=== PATIENT | male | born 1970 | race Caucasian/White ===

== ENCOUNTER 2019-07-18 08:21 | Day surgery (SDC) | payer BC ==
[2019-07-18 09:28] VITALS: BMI 30.5
[2019-07-18 10:34] VITALS: TEMP 97.5
[2019-07-18 11:44] VITALS: BP 121/67; PULSE 62
[2019-07-18 11:46] LABS: BASO % 0.7 % (0-2.0); EOS % 1.7 % (0-4.5); HEMOGLOBIN 13.5 GM/dL (11.7-16.9); LYMPH % 33.8 % (8-40); MCH 27.4 pg (25.7-33.7); MCHC 32.9 g/dl (32.0-35.9); MEAN CELL VOLUME 83.3 fl (80-96); MEAN PLT VOLUME 7.5 fl (7.5-11.1); MONO % 4.9 % (3.8-10.2); NEUT % 58.9 % (42.8-82.8); PLATELET COUNT 210 K/MM3 (134-434); RBC 4.92 M/mm3 (4.00-5.60); WHITE BLOOD COUNT 4.8 K/mm3 (4.0-10.0)
[2019-07-18 12:14] LABS: IRON SERUM 136 ug/dL (50-175); TOTAL IRON BINDING CAPACITY 295 ug/dL (250-450)
[2019-07-18 12:17] LABS: BLOOD UREA NITROGEN 13.5 mg/dL (7-18); CALCIUM 8.9 mg/dL (8.5-10.1); CREATININE 1.1 mg/dL (0.55-1.3); POTASSIUM 4.1 mmol/L (3.5-5.1); TOT PROT 7.2 g/dl (6.4-8.2)
[2019-07-19 17:07] LABS: GLIADIN ANTIBODY IGA 4 units (0-19); GLIADIN ANTIBODY IGG 4 units (0-19); TRANSGLUTAMINASE IGG < 2 U/mL (0-5)
--- NOTE | 2019-07-19 17:33 | PATH ---
Surgical Pathology Report Patient Name: YOVANNY CARD [facility]. Rec. #: [id number] /Age/Gender: 1970 (Age: 48) / M Account: [id number] Location: U-ENDOSCOPY Taken: 07/18/2019 Received: 07/18/2019 Reported: 07/19/2019 Physicians: Musa Dawn M.D. Specimen(s) Received A: ILEUM B: CECUM C: RIGHT COLON D: MID TRANSVERS COLON POLY E: DISTAL TRANSVERSE COLON F: SIGMOID G: RECTUM Clinical History Ulcerative colitis Postoperative diagnosis: Quiescent ulcerative colitis/proctitis, colon polyp Final Diagnosis A. ILEUM, BIOPSY: ILEAL MUCOSA WITH PROMINENT LYMPHOID AGGREGATE. NO SIGNIFICANT ARCHITECTURAL DISTORTION OR ACUTE INFLAMMATION IDENTIFIED. NO GRANULOMA OR DYSPLASIA IDENTIFIED. B. CECUM, BIOPSY: COLONIC MUCOSA WITH MILD CHRONIC ACTIVE COLITIS, INCLUDING MILD ARCHITECTURAL DISTORTION, MILD INCREASE IN ACUTE AND CHRONIC INFLAMMATORY INFILTRATE, AND PROMINENT LYMPHOID AGGREGATE WITHIN LAMINA PROPRIA. NO GRANULOMA OR DYSPLASIA IDENTIFIED. C. COLON, RIGHT, BIOPSY: COLONIC MUCOSA WITH MODERATE ARCHITECTURAL DISTORTION, INCREASED CHRONIC INFLAMMATORY INFILTRATE AND PROMINENT LYMPHOID AGGREGATES WITHIN LAMINA PROPRIA. NO GRANULOMA OR DYSPLASIA IDENTIFIED. D. MID TRANSVERSE COLON, POLYP, BIOPSY: TUBULAR ADENOMA. E. DISTAL TRANSVERSE COLON, BIOPSY: COLONIC MUCOSA WITH MILD ARCHITECTURAL DISTORTION, INCREASED CHRONIC INFLAMMATORY INFILTRATE AND PROMINENT LYMPHOID AGGREGATES WITHIN LAMINA PROPRIA. NO GRANULOMA OR DYSPLASIA IDENTIFIED. F. SIGMOID COLON, BIOPSY: COLONIC MUCOSA WITH MILD ARCHITECTURAL DISTORTION, MILD INCREASE IN CHRONIC INFLAMMATORY INFILTRATE WITHIN LAMINA PROPRIA, SMALL LYMPHOID AGGREGATES, AND SUPERFICIAL HYPERPLASTIC FEATURES. NO GRANULOMA OR DYSPLASIA IDENTIFIED. G. RECTUM, BIOPSY: COLONIC MUCOSA WITH MILD INCREASE IN CHRONIC INFLAMMATORY INFILTRATE, SMALL LYMPHOID AGGREGATE, AND HEMORRHAGE WITHIN LAMINA PROPRIA. NO GRANULOMA OR DYSPLASIA IDENTIFIED. Comment: Overall findings are consistent with history of ulcerative colitis with focal activity. Suggest clinical and endoscopic correlation. Electronically Signed Nancy Thomas M.D. Gross Description A. Received in formalin, labeled "ileum" are 2 colby, irregular portions of soft tissue measuring 0.3 cm. in greatest dimension. The specimens are submitted in toto in one cassette. B. Received in formalin, labeled "cecum" are 3 colby, irregular portions of soft tissue measuring 0.1 and 0.4 cm. in greatest dimension. The specimens are submitted in toto in one cassette. C. Received in formalin, labeled "right colon" are 3 colby, irregular portions of soft tissue measuring 0.3 and 0.4 cm. in greatest dimension. The specimens are submitted in toto in one cassette. D. Received in formalin, labeled "mid transverse colon polyp" are 2 colby, irregular portions of soft tissue measuring 0.2 and 0.6 cm. in greatest dimension. The specimens are submitted in toto in one cassette. E. Received in formalin, labeled "distal transverse" is a colby, irregular portion of soft tissue measuring 0.3 cm. in greatest dimension. The specimen is submitted in toto in one cassette. F. Received in formalin, labeled "sigmoid" are 3 colby, irregular portions of soft tissue measuring 0.1 and 0.3 cm. in greatest dimension. The specimens are submitted in toto in one cassette. G. Received in formalin, labeled "rectum" are 4 colby, irregular portions of soft tissue measuring 0.1 and 0.2 cm. in greatest dimension. The specimens are submitted in toto in one cassette. MLSZ/07/18/2019 sanml07/18/2019
[2019-07-20 06:36] LABS: CHOLESTEROL 184 mg/dL (50-200); HDL CHOLESTEROL 39 mg/dL (40-60); LDL CHOLESTEROL (ONLY SJRH) 110 mg/dL (5-100); TRIGLYCERIDES 169 mg/dL (0-150)
[2019-07-20 16:07] LABS: ATYPICAL pANCA <1:20 titer (Neg:<1:20); C-ANCA <1:20 titer (Neg:<1:20)
== END 2019-07-18 11:44 | disposition home or self-care (01) ==
LOC: JASU-ENDO 08:21
PROVIDERS: ATTEND Internal Medicine Gastroenterology
PROC: 0DBE8ZX Excision of Large Intestine, Via Natural or Artificial Opening Endoscopic, Diagnostic (ICD-10-PCS; 2019-07-18)
PROC: 0DBL8ZX Excision of Transverse Colon, Via Natural or Artificial Opening Endoscopic, Diagnostic (ICD-10-PCS; 2019-07-18)
PROC: 0DBP8ZX Excision of Rectum, Via Natural or Artificial Opening Endoscopic, Diagnostic (ICD-10-PCS; principal; 2019-07-18 08:45)
DX: Z12.11 Encounter for screening for malignant neoplasm of colon (principal); K51.90 Ulcerative colitis, unspecified, without complications; D12.3 Benign neoplasm of transverse colon
CPT/HCPCS: 36415; 80053; 80061; 82306; 82728; 82784; 83516; 83520; 83540; 83550; 83721; 85025; 86140; 86256; 86671; 88305-TC

== ENCOUNTER 2021-06-19 04:42 | Day surgery (SDC) | payer BC ==
[2021-06-19 09:00] VITALS: TEMP 97.8; BMI 29.9
[2021-06-19 12:19] VITALS: BP 116/77; PULSE 73
== END 2021-06-19 11:30 | disposition home or self-care (01) ==
LOC: JASU-ENDO 04:42
PROVIDERS: ATTEND Internal Medicine Gastroenterology
PROC: 0DBL8ZX Excision of Transverse Colon, Via Natural or Artificial Opening Endoscopic, Diagnostic (ICD-10-PCS; 2021-06-19)
PROC: 0DBN8ZX Excision of Sigmoid Colon, Via Natural or Artificial Opening Endoscopic, Diagnostic (ICD-10-PCS; 2021-06-19)
PROC: 0DBP8ZX Excision of Rectum, Via Natural or Artificial Opening Endoscopic, Diagnostic (ICD-10-PCS; 2021-06-19)
PROC: 0DBB8ZX Excision of Ileum, Via Natural or Artificial Opening Endoscopic, Diagnostic (ICD-10-PCS; 2021-06-19)
PROC: 0DBH8ZX Excision of Cecum, Via Natural or Artificial Opening Endoscopic, Diagnostic (ICD-10-PCS; 2021-06-19)
PROC: 0DBK8ZX Excision of Ascending Colon, Via Natural or Artificial Opening Endoscopic, Diagnostic (ICD-10-PCS; principal; 2021-06-19 09:45)
DX: Z12.11 Encounter for screening for malignant neoplasm of colon (principal); K51.80 Other ulcerative colitis without complications; K57.30 Diverticulosis of large intestine without perforation or abscess without bleeding; K64.0 First degree hemorrhoids; K62.89 Other specified diseases of anus and rectum; R19.4 Change in bowel habit; R10.84 Generalized abdominal pain

== ENCOUNTER 2024-07-09 05:03 | Day surgery (SDC) | payer BC ==
[2024-06-29 14:20] VITALS: BMI 31.8
[2024-07-09 10:28] VITALS: TEMP 97.8
[2024-07-09 12:22] VITALS: RESP 18
[2024-07-09 12:56] VITALS: BP 117/76; PULSE 64
== END 2024-07-09 13:05 | disposition home or self-care (01) ==
LOC: JASU-ENDO 05:03
PROVIDERS: ATTEND Internal Medicine Gastroenterology
PROC: 0DBL8ZX Excision of Transverse Colon, Via Natural or Artificial Opening Endoscopic, Diagnostic (ICD-10-PCS; 2024-07-09)
PROC: 0DBN8ZX Excision of Sigmoid Colon, Via Natural or Artificial Opening Endoscopic, Diagnostic (ICD-10-PCS; 2024-07-09)
PROC: 0DBP8ZX Excision of Rectum, Via Natural or Artificial Opening Endoscopic, Diagnostic (ICD-10-PCS; 2024-07-09)
PROC: 0DBB8ZX Excision of Ileum, Via Natural or Artificial Opening Endoscopic, Diagnostic (ICD-10-PCS; 2024-07-09)
PROC: 0DBM8ZX Excision of Descending Colon, Via Natural or Artificial Opening Endoscopic, Diagnostic (ICD-10-PCS; 2024-07-09)
PROC: 0DBH8ZX Excision of Cecum, Via Natural or Artificial Opening Endoscopic, Diagnostic (ICD-10-PCS; 2024-07-09)
PROC: 0DBK8ZX Excision of Ascending Colon, Via Natural or Artificial Opening Endoscopic, Diagnostic (ICD-10-PCS; principal; 2024-07-09 11:00)
DX: Z12.11 Encounter for screening for malignant neoplasm of colon (principal); Z87.19 Personal history of other diseases of the digestive system; K63.89 Other specified diseases of intestine; K64.8 Other hemorrhoids; Z86.010 Personal history of colon polyps
CPT/HCPCS: 88305-TC